=== PATIENT | female | born 1965 | race Hispanic/Latino ===

== ENCOUNTER 2024-07-16 06:00 | Day surgery (SDC) | payer OTHER ==
[2024-07-16] VITALS (11 sets, daily range): BP systolic 100–119; BP diastolic 50–63; PULSE 63–79; RESP 14–18; TEMP 97.4–98.2
[~2024-07-16] VITALS: Ht 162.6 cm; Wt 46.7 kg
[2024-07-16] MEDS ORDERED: PANT40TA54 PO (07:27)
[2024-07-16] MEDS ORDERED: LURA60TA PO (07:27)
[2024-07-16] MEDS ORDERED: [UNRECOGNIZED DRUG - CODE] PO (07:27)
[2024-07-16] MEDS ORDERED: FLUO40CA49 PO (07:27)
[2024-07-16] MEDS ORDERED: ATOR40TA69 PO (07:27)
[2024-07-16] MEDS ORDERED: CLON0.5T4 PO (07:27)
[2024-07-16] MEDS ORDERED: ZOLP-685 PO (07:27)
[2024-07-16] MEDS ORDERED: BUTA-256 PO (07:27)
[2024-07-16] MEDS: 0.9%NACL 1000ML 1,000 ML IV ONE (07:39)
[2024-07-16] MEDS ORDERED: proPOFol 10 MG/ML 20ML VIAL IV ONE (08:41)
[2024-07-16] MEDS ORDERED: LIDOCAINE HCL 1% 20 ML VIAL ONE (08:41)
== END 2024-07-16 09:52 | disposition home or self-care (01) ==
LOC: DAH 06:00 → ENDO 06:00
PROVIDERS: ATTEND Internal Medicine Gastroenterology
DX: R10.11 Right upper quadrant pain (principal); K29.50 Unspecified chronic gastritis without bleeding; K28.9 Gastrojejunal ulcer, unspecified as acute or chronic, without hemorrhage or perforation; D50.9 Iron deficiency anemia, unspecified; F41.9 Anxiety disorder, unspecified; K91.1 Postgastric surgery syndromes; F31.30 Bipolar disorder, current episode depressed, mild or moderate severity, unspecified; M19.90 Unspecified osteoarthritis, unspecified site; Z90.49 Acquired absence of other specified parts of digestive tract; Z98.890 Other specified postprocedural states; Z98.84 Bariatric surgery status; Z79.899 Other long term (current) drug therapy
CPT/HCPCS: 81025; 43239; J7030; J2704; A4620; A4215 ×2; A4223; A4222; A4221; A4663; A4606; J3490